=== PATIENT | male | born 1990 | race Caucasian/White ===

== ENCOUNTER 2024-04-29 19:13 | Emergency (ER) | payer SELFPAY ==
[2024-04-29] VITALS (10 sets, daily range): BP systolic 162–224; BP diastolic 98–140; PULSE 85–123; TEMP 36.8; O2SAT 95–100; BMI 29.9
--- NOTE | 2024-04-29 19:46 | ED.EPISTAXI1 ---
HPI - Epistaxis General Chief Complaint: Epistaxis Stated Complaint: Epistaxis Time Seen by Provider: 04/29/24 19:35 Source: patient Mode of arrival: walk-in History of Present Illness HPI Narrative: 34-year-old male presents to the emergency department for nosebleed. It started at 11:00 this morning and has only been on the right side. It subsided and then started again about 6 PM. He is on no blood thinners and there was no injury. He has never had an issue like this previously. He recognizes that he has high blood pressure and he does not get it checked, he does not have a PCP. Related Data Previous Rx's ?Medication ?Instructions ?Recorded amlodipine 5 mg tablet (Norvasc) 5 mg PO DAILY #30 tabs 04/29/24 Allergies Allergy/AdvReac Type Severity Reaction Status Date / Time No Known Drug Allergies Allergy Verified 04/29/24 19:38 Review of Systems ROS Narrative A ten point review of systems is negative except as noted above. Exam Narrative Exam Narrative: Nurses note and vital signs reviewed and patient is not hypoxic. General: The patient appears in no apparent distress. There is dried blood on his face neck and hands. Skin: Warm, dry, no pallor noted. There is no rash noted. Head: Normocephalic, atraumatic Eye: Normal conjunctiva, no drainage Ears, Nose, Mouth, and Throat: oral mucosa is moist. Nasal clamp in place. No apparent active bleeding. Cardiovascular: Regular Rate and Rhythm Respiratory: Patient is in no distress, no accessory muscle use, lungs are clear to auscultation, no wheezing, rales or rhonchi Back: non-tender GI: Soft and nontender Musculoskeletal: The patient has no evidence of calf tenderness, no pitting edema, symmetrical pulses noted bilaterally Neurological: A&O, normal speech Psychiatric: Cooperative Constitutional Vital Signs, click to edit/add: Last Vital Signs Temp 98.3 F 04/29/24 19:33 Pulse 88 04/29/24 23:19 Resp 18 04/29/24 23:19 BP 162/98 H 04/29/24 23:38 Pulse Ox 97 04/29/24 23:19 O2 Del Method Room Air 04/29/24 23:19 Course Vital Signs Vital signs: Vital Signs Temperature 98.3 F 04/29/24 19:33 Pulse Rate 123 H 04/29/24 19:33 Respiratory Rate 20 04/29/24 19:33 Blood Pressure 224/128 H 04/29/24 19:33 Pulse Oximetry 99 04/29/24 19:33 Oxygen Delivery Method Room Air 04/29/24 19:33 Temperature 98.3 F 04/29/24 19:33 Pulse Rate 88 04/29/24 23:19 Respiratory Rate 18 04/29/24 23:19 Blood Pressure 162/98 H 04/29/24 23:38 Pulse Oximetry 97 04/29/24 23:19 Oxygen Delivery Method Room Air 04/29/24 23:19 MDM - Epistaxis MDM Narrative Medical decision making narrative: The patient presented with epistaxis. It has been packed and he has had no further bleeding. The patient also presented with uncontrolled hypertension. He has received 3 doses of 20 mg of labetalol with some improvement of his blood pressure. It was recommended that he be admitted to the hospital but he adamantly refuses to do so. He is fully able to make medical decisions for himself and is allowed to sign out against advice. Prompt follow-up for his blood pressure was recommended. Nasal packing to be removed in 3 days. Differential Diagnosis Differential diagnosis: Likely anterior epistaxis, posterior epistaxis and other (Uncontrolled hypertension) Lab Data Attestation: I reviewed the patient's lab results. Labs: Lab Results 04/29/24 Range/Units 19:52 WBC 10.7 (4.0-11.0) 10^3/uL RBC 5.18 (4.70-6.10) 10^6/uL Hgb 14.6 (14.0-18.0) g/dL Hct 44.5 (42.0-54.0) % MCV 85.9 (80.0-94.0) fL MCH 28.2 (25.9-34.0) pg MCHC 32.8 (29.9-35.2) g/dL RDW 12.6 (11.0-15.0) % Plt Count 205 (150-450) 10^3/uL MPV 10.3 (9.5-13.5) fL Neut % (Auto) 79.0 H (43.0-75.0) % Lymph % (Auto) 10.0 L (20.5-60.0) % [place] % (Auto) 9.0 (1.7-12.0) % Eos % (Auto) 1.1 (0.9-7.0) % Baso % (Auto) 0.6 (0.2-2.0) % Neut # (Auto) 8.5 H (1.4-6.5) 10^3/uL Lymph # (Auto) 1.1 L (1.2-3.8) 10^3/uL [place] # (Auto) 1.0 H (0.3-0.8) 10^3/uL Eos # (Auto) 0.1 (0.0-0.7) 10^3/uL Baso # (Auto) 0.1 (0.0-0.1) 10^3/uL Abs Immat Gran (auto) 0.03 (0.00-0.03) 10^3/uL Imm/Tot Granulo (auto) 0.3 (0.0-0.5) % Sodium 137 (136-145) mmol/L Potassium 3.3 L (3.5-5.1) mmol/L Chloride 101 (98-107) mmol/L Carbon Dioxide 25.8 (21.0-32.0) mmol/L Anion Gap 13.5 BUN 20.0 H (7.0-18.0) mg/dL Creatinine 1.27 (0.70-1.30) mg/dL Est GFR ( Amer) >60 (>=60) Est GFR (Non-Af Amer) >60 (>=60) BUN/Creatinine Ratio 15.7 Glucose 119 H (74-106) mg/dL Calcium 8.5 (8.5-10.1) mg/dL Discharge Plan Discharge Stand Alone Forms: Portal Instructions Chief Complaint: Epistaxis Clinical Impression: Epistaxis, Essential hypertension Patient Disposition: Left Against Medical Advice Time of Disposition Decision: 23:43 Condition: Fair Mode of Transportation: Private Vehicle Prescriptions / Home Meds: New amlodipine [Norvasc] 5 mg tablet 5 mg PO DAILY Qty: 30 0RF Print Language: Swedish Instructions: Nosebleed (ED), Heart Healthy Diet (ED), Low-Sodium Diet (ED), Hypertension (ED) Additional Instructions: See list of PCPs provided to you. Call in the morning to make follow-up appointment Nasal packing to be removed on . Follow-up with ENT. Referrals: Michelle Valverde MD [Physician] - 1 week Physician,Non-StaffMD [Primary Care Provider] - 1 week Procedures ED Procedure Instructions Procedures Procedures: The following procedure was performed by me. 5.5 cm anterior inflatable nasal packing placed in the right nares and inflated. He tolerated it well. No subsequent bleeding.
--- NOTE | 2024-04-29 19:58 | PC.NURSE ---
Large amount of bright red bleeding from right nostril. Dr. Sanches places rhino rocket in right nare and bleeding controlled at this time. String taped to face. Patient educated to not blow nose or pick at area and voices understanding. Patient has no PCP, given list of PCP's currently accepting new patients.
[2024-04-29 20:02] LABS: Basophils Absolute Auto 0.1 10^3/uL (0.0-0.1); Basophils Percent Auto 0.6 % (0.2-2.0); Eosinophils Absolute Auto 0.1 10^3/uL (0.0-0.7); Eosinophils Percent Auto 1.1 % (0.9-7.0); Hematocrit 44.5 % (42.0-54.0); Hemoglobin 14.6 g/dL (14.0-18.0); Immature Granulocytes Abs Auto 0.03 10^3/uL (0.00-0.03); Immature Granulocytes Pct Auto 0.3 % (0.0-0.5); Lymphocytes Absolute Auto 1.1 10^3/uL (1.2-3.8); Mean Corpuscular HGB Conc 32.8 g/dL (29.9-35.2); Mean Corpuscular Hemoglobin 28.2 pg (25.9-34.0); Mean Corpuscular Volume 85.9 fL (80.0-94.0); Mean Platelet Volume 10.3 fL (9.5-13.5); Neutrophils Absolute Auto 8.5 10^3/uL (1.4-6.5); Platelet Count 205 10^3/uL (150-450); Red Blood Count 5.18 10^6/uL (4.70-6.10); Red Cell Distribution Width 12.6 % (11.0-15.0); White Blood Count 10.7 10^3/uL (4.0-11.0)
[2024-04-29 20:14] LABS: Anion Gap 13.5; BUN Creatinine Ratio 15.7; Calcium 8.5 mg/dL (8.5-10.1); Carbon Dioxide 25.8 mmol/L (21.0-32.0); Chloride 101 mmol/L (98-107); Estimated GFR (African America >60 (>=60); Estimated GFR (Non-African Ame >60 (>=60); Glucose 119 mg/dL (74-106); Potassium 3.3 mmol/L (3.5-5.1); Sodium 137 mmol/L (136-145)
[2024-04-29] MEDS: LABETALOL HCL 20 MG/4 ML SYRINGE IVP ×3 (20:58→22:58)
== END 2024-04-30 00:17 | disposition left against medical advice (07) ==
PROVIDERS: Emergency Provider Emergency Medicine
DX: R04.0 Epistaxis (principal); I10 Essential (primary) hypertension
CPT/HCPCS: 30901; 36415; 80048; 85025; 96374; 96376; 99285